=== PATIENT | male | born 1985 | race Two or more races ===

== ENCOUNTER 2022-05-27 19:34 | Emergency (ER) | payer MEDICAID ==
[~2022-05-27] VITALS: Ht 167.6 cm; Wt 80.0 kg
[~2022-05-27 19:34] MED LIST: CEPH-509 PO; NAPR500T31 PO
[2022-05-27 20:11] VITALS: BP 174/83
[2022-05-27] MEDS ORDERED: KETOROLAC TROMETH 30 MG/ML 1ML VIAL IV ONE (20:30)
== END 2022-05-27 20:30 | disposition left against medical advice (07) ==
LOC: EDBD 19:34 → ER 19:35
DX: T50.7X1A Poisoning by analeptics and opioid receptor antagonists, accidental (unintentional), initial encounter (principal); R51.9 Headache, unspecified; I10 Essential (primary) hypertension; F17.210 Nicotine dependence, cigarettes, uncomplicated; Y92.89 Other specified places as the place of occurrence of the external cause

== ENCOUNTER → 2022-07-28 | Emergency (ER) | payer MEDICAID ==
[~2022-07-28] VITALS: Ht 172.7 cm; Wt 100.0 kg
[2022-07-28 17:42] VITALS: BP 120/71
== END | disposition left against medical advice (07) ==
LOC: EDUNIT# 17:41 → EDBD 17:42 → ER 17:48
DX: F10.10 Alcohol abuse, uncomplicated (principal); Z53.21 Procedure and treatment not carried out due to patient leaving prior to being seen by health care provider